=== PATIENT | male | born 1950 | race African-American/Black ===

== ENCOUNTER 2018-06-06 13:05 | Emergency (ER) | payer OTHER ==
[2018-06-06 13:10] VITALS: BMI 34.2
--- NOTE | 2018-06-06 13:32 | PDOC ---
Attending Attestation - [facility] HPI: 06/06/18 14:57 The patient is a 67 year old male with a significant past medical history of diabetes, HTN, HIV, neuropathy, and chronic back pain who presents to the ER with lightheadedness and abdominal pain today. Patient localizes the abdominal pain to the right upper quadrant and suprapubic region. Patient states he took his morning meds today, had smaller breakfast than usual and subsequently felt lightheaded while he got ready for tenriism. Patient also reports mild nausea, but states this is normal for him. The patient denies chest pain, shortness of breath, headache, and dizziness. Denies fever, chills, vomit, diarrhea, and constipation. Denies dysuria, frequency, urgency, and hematuria. Allergies: NKA Past surgical history: None reported. Social history: No reported alcohol, drug, or cigarette use. PCP: Dr Bergeron - Physicial Exam PE: 06/06/18 14:48 ADULT PHYSICAL EXAM Constitutional: Awake, alert, oriented. No acute distress. Head: Normocephalic. Atraumatic Eyes: PERRL. EOMI. Conjunctivae are not pale. ENT: Mucous membranes are moist and intact. Posterior pharynx without exudates or erythema. Uvula midline. Neck: Supple. Full ROM. No lymphadenopathy. Cardiovascular: Regular rate. Regular rhythm. S1, S2 regular. Distal pulses are 2+ and symmetric. Pulmonary/Chest: No evidence of respiratory distress. Clear to auscultation bilaterally No wheezing, rales or rhonchi. Abdominal: (+) Right upper quadrant and suprapubic tenderness. Soft and non- distended. No rebound, guarding or rigidity. No organomegaly. No palpable masses. Good bowel sounds. Back: No CVA tenderness. Musculoskeletal: No edema. No cyanosis. No clubbing. Full range of motion in all extremities. Nocalf tenderness. Radial/pedal pulses are intact and 2+ bilaterally Skin: Skin is warm and dry. No petechiae. No purpura. (+) Rash on the right ankle. Neurological: Alert and oriented to person, place, and time. Cranial nerves II -XII are grossly intact. Normal speech. Strength is grossly symmetric. No sensory deficits. (+) Peripheral neuropathy. Psychiatric: Good eye contact. Normal interaction, affect and behavior. <[place] - Last Filed: 06/06/18 14:57> - Resident Resident Name: BishopYe - ED Attending Attestation I have performed the following: I have examined & evaluated the patient, The case was reviewed & discussed with the resident, I agree w/resident's findings & plan, Exceptions are as noted - Medical Decision Making 06/06/18 13:31 I, Dr. Judy Lopez, DO, attest that this document has been prepared under my direction and personally reviewed by me in its entirety. I further attest, that it accurately reflects all work, treatment, procedures and medical decision -making performed by me. 06/06/18 15:27 a/p: 67yo male with HIV hx and chronic pain on opiates with lightheadedness and nausea today while at tenriism -near syncopal episode -took his morning pain meds - morphine, but did not eat or drink his normal breakfast -chronic abd pain from constipation -had an episode of sharp R sided cp yesterday, but none today -dysuria intermittently x a few days -no f/c -will send labs, ekg, trop, cxr, RUQ ultrasound/ua -pt with RUQ ttp that reproduces his abd pain -will hydrate with IVF hydration -reglan for nausea/silva/dizziness -will monitor and reassess 06/06/18 18:03 negative ultrasound pt feeling better 06/06/18 18:04 chest xray clear 06/06/18 18:07 pt feels much better asking to go home abd soft/nt no longer nauseated no longer dizzy suspect symptoms from narcotic use without food at home labs and imaging reviewed with the patient. pt is stable for d/c to home <Judy Lopez - Last Filed: 06/06/18 18:09> Discharge Disposition - Discharge Dispostion Decision to Admit order: No <Judy Lopez - Last Filed: 06/06/18 18:09> - Diagnosis Lightheadedness, Nausea, Abdominal pain - Discharge Dispostion Disposition: HOME Condition at time of disposition: Stable - Referrals Referrals: Soco Bergeron MD [Primary Care Provider] - - Patient Instructions Printed Discharge Instructions: DI for Dizziness-Nonvertigo, DI for Abdominal Pain-Adult Additional Instructions: Please make an appointment to see your PMD this week. Please drink plenty of fluids. Please take your medications with food or milk. Please return to the ED with any further concerns or complaints. - Post Discharge Activity
[2018-06-06] MEDS ORDERED: METOCLOPRAMIDE HCL INJECTION 10 MG/2 ML VIAL IVPUSH ONE (14:27)
[2018-06-06] MEDS ORDERED: SODIUM CHLORIDE 0.9% 500 ML INFUS.BAG IV ONE (14:27)
[2018-06-06] MEDS ORDERED: METOCLOPRAMIDE HCL INJECTION 10 MG/2 ML VIAL ONE (14:48)
[2018-06-06 14:56] LABS: BASO % 0.7 % (0-2.0); EOS % 1.1 % (0-4.5); HEMATOCRIT 39.5 % (35.4-49); LYMPH % 31.3 % (8-40); MCH 28.7 pg (25.7-33.7); MCHC 32.9 g/dl (32.0-35.9); MEAN CELL VOLUME 87.2 fl (80-96); MEAN PLT VOLUME 7.7 fl (7.5-11.1); MONO % 7.4 % (3.8-10.2); NEUT % 59.5 % (42.8-82.8); PLATELET COUNT 208 K/MM3 (134-434); RBC 4.53 M/mm3 (4.00-5.60); WHITE BLOOD COUNT 6.9 K/mm3 (4.0-10.0)
--- NOTE | 2018-06-06 15:10 | PDOC ---
History of Present Illness - General Chief Complaint: Syncope/Near Syncope Stated Complaint: NEAR SYNCOPE Time Seen by Provider: 06/06/18 13:31 History Source: Patient, Old Records Exam Limitations: No Limitations - History of Present Illness Initial Comments: 67 y/o male presenting to [facility] ER via private auto complaining of dizziness, lightheadedness, global weakness since approx. 10:30 this morning. Symptoms started while he was getting dressed for yazdanism. He was still able to make service. Began to feel worse and request friends drive him to the hospital. He states these symptoms are a chronic problem for him over the past several years. He took his scheduled morphine around 4am and oxycodone around 10am for his chronic back pain. Endorses nausea without vomiting, right sided nonradiating non-reproducible sharp chest pain, chronic and unchanged abdominal pain, and chronic and unchanged constipation. Pt is HIV+ but in remission. Believes his last viral load was undetectable but unable to recall his CD4 count. Thinks this was last tested 2 months ago. Complaint with HARRT therapy. Pt reports he has a monitor in his chest with a tablet coater on his bedside. Does not think it is a pacemaker. Does not know why it was placed or if he has any cardiac problems other than HTN. PCP: [facility] Infectious Disease: [facility] Larry Operator: [facility] [place] Hx: - EtOH: Infrequently, drank 1 glass of wine last night - Tobacco: Denies - Street Drugs: Denies Medical Hx: - Diabetes - HTN - HIV - Neuropathy - Chronic back pain Surgical Hx: - Pt denies past surgical history. Past History - Past Medical History Allergies/Adverse Reactions: Allergies Allergy/AdvReac Type Severity Reaction Status Date / Time No Known Allergies Allergy Verified 12/26/17 20:05 Home Medications: Ambulatory Orders Amlodipine Besylate 10 mg PO DAILY 12/26/17 Glipizide 5 mg PO BID 12/26/17 Lisinopril 10 mg PO DAILY 12/26/17 Metoprolol Tartrate 100 mg PO BID 12/26/17 Morphine [Morphine Sulfate] 15 mg PO BID 12/26/17 Naloxegol Oxalate [Movantik] 25 mg PO DAILY 12/26/17 Sitagliptin Phosphate [Januvia] 100 mg PO DAILY 12/26/17 oxyCODONE HCL [Roxicodone -] 10 mg PO BID 12/26/17 COPD: No CHF: No Diabetes: Yes HTN: Yes - Suicide/Smoking/Psychosocial Hx Smoking History: Never smoked Have you smoked in the past 12 months: No Information on smoking cessation initiated: No Hx Alcohol Use: No Drug/Substance Use Hx: No Substance Use Type: None Review of Systems - Review of Systems Able to Perform ROS?: Yes Comments:: In addition to that documented in the HPI above, the additional ROS was obtained : Constitutional: Denies fevers or chills Eyes: Denies vision changes ENMT: Denies sore throat CV: Endorses chest pain per HPI Resp: Denies SOB GI: Denies vomiting or diarrhea *Physical Exam - Vital Signs Last Vital Signs Temp Pulse Resp BP Pulse Ox 97.9 F 71 19 117/71 98 06/06/18 18:51 06/06/18 18:51 06/06/18 18:51 06/06/18 18:51 06/06/18 18:51 - Physical Exam Comments: Constitutional: Well-developed, well-nourished male in no acute distress or obvious discomfort. Found semi-fowlers in hospital bed. Alert and oriented x4. Answered all questions appropriately and completely. Speech was non-labored, non -pressured. HEENT: Normocephalic. No obvious external signs of trauma. Hearing grossly normal. No nasal discharge. Neck is supple, trachea is midline. Cardiovascular: Regular rate and regular rhythm. No murmur, rubs, clicks, or gallops. Peripheral pulses: Radial pulses full. Respiratory: Breathing unlabored. Equal chest rise and fall. Clear to auscultation bilaterally. No stridor, no wheezing, no rhonchi. Gastrointestinal: abdomen is subjectively tender without rebound or guarding in epigastric region and LLQ. No pulsatile masses. No overlying skin lesions or obvious signs of trauma. Neuro: Alert and oriented. Moving all four extremities spontaneously.Intact sensation to all four extremities. Upper and lower extremity: proximal and distal strength 5/5. Vp Global strength 5/5 - equal and symmetric. Plantar flexion and dorsiflexion 5/5. Skin: Warm, dry, and intact. No bruising, rashes, or other lesions. No palpable nodules. Psych: Affect: appropriate. Mood: normal. ED Treatment Course - LABORATORY CBC & Chemistry Diagram: 06/06/18 14:48 06/06/18 14:48 - ADDITIONAL ORDERS Additional order review: 06/06/18 14:48 RBC 4.53 MCV 87.2 MCHC 32.9 RDW 15.0 MPV 7.7 Neutrophils % 59.5 Lymphocytes % 31.3 Monocytes % 7.4 Eosinophils % 1.1 Basophils % 0.7 - RADIOLOGY Radiology Studies Ordered: Category Date Time Status CHEST PA & LAT [RAD] Stat Radiology 06/06/18 14:04 Completed Radiograph Interpretation: RUQ Ultrasound: Akbar Yang MD wrote on Jun 06, 2018 at 05:57 PM: Referring Physician: JENN CORTEZ Patient Name: CEZAR GOMEZ THIS IS A PRELIMINARY REPORT FROM [facility] DATE OF SERVICE: 2018-06-06 16:39:52 IMAGES: 46 EXAM: US ABDOMEN LIMITED HISTORY: Right upper quadrant pain. TECHNIQUE: Sonographic imaging was performed utilizing transabdominal approach. Additional Doppler flow of the liver were submitted for dictation. COMPARISON: None available. FINDINGS: Liver: Mild hepatic steatosis. Bile Ducts: Intrahepatic and extrahepatic bile ducts are not dilated. The common bile duct measures 0.4 cm. Gallbladder: No evidence of shadowing cholelithiasis, gallbladder wall thickening, or pericholecystic fluid. Negative sonographic Darby's sign. Pancreas: The pancreatic head is unremarkable. Right Kidney: No pelvicaliceal dilatation. Incidental note is made of a 1.3 cm nonobstructing nephrolithiasis in the superior pole of the right kidney. Aorta and Inferior Vena Cava: Visualized portions appear normal. THIS DOCUMENT HAS BEEN ELECTRONICALLY SIGNED Akbar Yang MD 06/06/2018 17:57 EST - Medications Given in the ED: ED Medications Discontinued Medications Generic Name Dose Route Start Last Admin Trade Name Freq PRN Reason Stop Dose Admin Diphenhydramine HCl 12.5 mg 06/06/18 14:28 06/06/18 14:52 Benadryl Injection - IVPUSH 06/06/18 14:29 12.5 mg ONCE ONE Administration Metoclopramide HCl 10 mg 06/06/18 14:27 06/06/18 14:52 Reglan Injection - IVPUSH 06/06/18 14:28 10 mg ONCE ONE Administration Sodium Chloride 1,000 ml 06/06/18 14:27 06/06/18 14:52 Normal Saline - IV 10/07/18 14:28 1,000 ml ONCE ONE Administration Medical Decision Making - Medical Decision Making *Reviewed vital signs, nursing notes, and prior visit documentation (if available). 67 y/o male complaining of acute worsening of dizziness, lightheadedness, and weakness. Complaints have been chronic for several years. Afebrile. Vitals unremarkable for hypotension or tachycardia. CBC unremarkable for anemia or leukocytosis. CMP unremarkable for electrolyte derangement. LFTs not elevated. UA unremarkable for pyuria, leukocyte esterase, or nitrites. Low suspicion for UTI. Culture pending. RUQ U/S unremarkable for acute biliary process. Suspect pt's symptoms are vertiginous in nature. Pt now states he has previously taken medication for vertigo but has not used it in a while. My attending provided results, return precautions, and discharge instructions. Pt left department without incident. *DC/Admit/Observation/Transfer Diagnosis at time of Disposition: Lightheadedness, Nausea, Abdominal pain - Discharge Dispostion Disposition: HOME Condition at time of disposition: Stable - Referrals Referrals: Soco Bergeron MD [Primary Care Provider] - - Patient Instructions Printed Discharge Instructions: DI for Abdominal Pain-Adult, DI for Dizziness- Nonvertigo Additional Instructions: Please make an appointment to see your PMD this week. Please drink plenty of fluids. Please take your medications with food or milk. Please return to the ED with any further concerns or complaints. - Post Discharge Activity
[2018-06-06 15:35] LABS: ALBUMIN 3.7 g/dl (3.4-5.0); ALK PHOS 68 U/L (45-117); ANION GAP 4 MMOL/L (8-16); BILIRUBIN,TOTAL 0.4 mg/dL (0.2-1); BLOOD UREA NITROGEN 24 mg/dL (7-18); CALCIUM 10.1 mg/dL (8.5-10.1); CHLORIDE 104 mmol/L (98-107); CO2 27 mmol/L (21-32); CREATININE 1.3 mg/dL (0.55-1.3); GLUCOSE,RANDOM 189 mg/dL (74-106); POTASSIUM 4.1 mmol/L (3.5-5.1); SGOT/AST 17 U/L (15-37); SGPT/ALT 24 U/L (13-61); SODIUM 134 mmol/L (136-145); TOT PROT 8.5 g/dl (6.4-8.2)
[2018-06-06 16:05] LABS: URINE APPEARANCE SLCLOUDY; URINE BILIRUBIN NEGATIVE (<2.0 mg/dL); URINE COLOR AMBER; URINE GLUCOSE (UA) NEGATIVE (NEGATIVE); URINE KETONE TRACE (NEGATIVE); URINE LEUK ESTERASE NEGATIVE (NEGATIVE); URINE NITRITE NEGATIVE (NEGATIVE); URINE PROTEIN 2+ (NEGATIVE); URINE UROBILINOGEN NEGATIVE mg/dL (0.2-1.0)
[2018-06-06 16:14] LABS: EPI CELLS RARE /HPF (FEW)
[2018-06-06 18:52] VITALS: BP 117/71; PULSE 71; TEMP 97.9
--- NOTE | 2018-06-07 10:40 | EKG ---
Test Reason : Blood Pressure : / mmHG Vent. Rate : 065 BPM Atrial Rate : 065 BPM P-R Int : 192 ms QRS Dur : 082 ms QT Int : 390 ms P-R-T Axes : 053 -15 -04 degrees QTc Int : 405 ms NORMAL SINUS RHYTHM POSSIBLE LEFT ATRIAL ENLARGEMENT INFERIOR INFARCT (CITED ON OR BEFORE 26-DEC-2017) ABNORMAL ECG WHEN COMPARED WITH ECG OF 26-DEC-2017 22:06, NO SIGNIFICANT CHANGE WAS FOUND Confirmed by LUZ CABALLERO MD ([id number]) on 06/07/2018 10:39:38 AM Referred By: Confirmed By:LUZ CABALLERO MD
== END 2018-06-06 19:03 | disposition home or self-care (01) ==
LOC: JER 13:05
PROC: 3E033GC Introduction of Other Therapeutic Substance into Peripheral Vein, Percutaneous Approach (ICD-10-PCS; principal; 2018-06-06)
PROC: 3E033GC Introduction of Other Therapeutic Substance into Peripheral Vein, Percutaneous Approach (ICD-10-PCS; 2018-06-06)
DX: R10.84 Generalized abdominal pain (principal); R42 Dizziness and giddiness; R11.0 Nausea; I10 Essential (primary) hypertension; E11.9 Type 2 diabetes mellitus without complications; Z79.84 Long term (current) use of oral hypoglycemic drugs; G62.9 Polyneuropathy, unspecified; M54.9 Dorsalgia, unspecified; G89.29 Other chronic pain; Z21 Asymptomatic human immunodeficiency virus [HIV] infection status
CPT/HCPCS: 36415; 71046-TC-FY; 76705-TC; 80053; 81003; 81015; 82272; 84484; 85025; 87086; 93005; 93010; 96374; 96375; 99284-25

== ENCOUNTER 2018-09-20 11:17 | Emergency (ER) | payer OTHER ==
[2018-09-20 11:26] VITALS: TEMP 98.1; BMI 32.1
--- NOTE | 2018-09-20 13:46 | PDOC ---
History of Present Illness - General Chief Complaint: Lightheaded Stated Complaint: DIZZNESS/VOMITING/COUGHING Time Seen by Provider: 09/20/18 11:47 History Source: Patient Exam Limitations: No Limitations - History of Present Illness Initial Comments: 09/20/18 14:08 Pt is a 68yo M with PMH of HTN, NIDDM, HIV with undetectable viral load ( checked every 3 months), GERD, Vertigo presenting to ED with complaints of dizziness and cough. Pt says he normally has feelings of vertigo however this time he is now coughing as well. He states last time he had similar symptoms he was diagnosed with PNA. He endorses cough productive of beige/light brown phlegm for the past 2-3 weeks, 2 episodes of nbnb emesis 2 days ago, subjective fevers, chills, burning with urination and abdominal pain which patient describes as a burning sensation. Pt denies chest pain, lightheadedness, syncope , palpitations, diarrhea, bloody stools, weakness, numbness/tingling. PMD: Rubio PMH: see hpi Meds: see med rec Allergies: nkda Social: denies Past History - Past Medical History Allergies/Adverse Reactions: Allergies Allergy/AdvReac Type Severity Reaction Status Date / Time No Known Allergies Allergy Verified 09/20/18 11:23 Home Medications: Ambulatory Orders Amlodipine Besylate 10 mg PO DAILY 12/26/17 Glipizide 10 mg PO BID 12/26/17 Lisinopril 10 mg PO DAILY 12/26/17 Metoprolol Tartrate 100 mg PO BID 12/26/17 Morphine [Morphine Sulfate] 15 mg PO BID 12/26/17 Naloxegol Oxalate [Movantik] 25 mg PO DAILY 12/26/17 Sitagliptin Phosphate [Januvia] 100 mg PO DAILY 12/26/17 oxyCODONE HCL [Roxicodone -] 10 mg PO BID 12/26/17 Azithromycin [Zithromax -] 250 mg PO UTDICT #6 tab 09/20/18 Meclizine HCl 50 mg PO BID #14 tablet 09/20/18 Cardiac Disorders: Yes (internal heart monitor) COPD: No CHF: No Diabetes: Yes HTN: Yes - Immunization History Immunization Up to Date: Yes - Suicide/Smoking/Psychosocial Hx Smoking History: Never smoked Have you smoked in the past 12 months: No Hx Alcohol Use: No Drug/Substance Use Hx: No Substance Use Type: None Review of Systems - Review of Systems Constitutional: Yes: Chills, Fever. No: Loss of Appetite, Weakness HEENTM: No: Eye Pain, Blurred Vision, Ear Pain, Throat Pain Respiratory: Yes: Cough, Shortness of Breath. No: Orthopnea, Wheezing Cardiac (ROS): No: Chest Pain, Lightheadedness, Palpitations, Syncope ABD/GI: Yes: Constipated, Nausea, Vomiting, Abdominal cramping. No: Diarrhea, Difficulty Swallowing, Rectal Bleeding, Tarry Stools : Yes: Burning. No: Dysuria, Discharge, Frequency, Flank Pain Musculoskeletal: No: Back Pain, Muscle Weakness, Neck Pain, Joint Stiffness Integumentary: No: Symptoms Reported Neurological: No: Headache, Numbness, Seizure, Tingling, Tremors, Weakness, Dizziness *Physical Exam - Vital Signs Last Vital Signs Temp Pulse Resp BP Pulse Ox 98.1 F 71 20 173/94 H 98 09/20/18 11:23 09/20/18 11:23 09/20/18 11:23 09/20/18 11:23 09/20/18 11:23 - Physical Exam General Appearance: Yes: Nourished, Appropriately Dressed. No: Apparent Distress HEENT: positive: EOMI, PAIGE, Normal ENT Inspection, TMs Normal, Pharynx Normal Neck: positive: Trachea midline, Supple. negative: Carotid bruit, Lymphadenopathy (R), Lymphadenopathy (L) Respiratory/Chest: positive: Lungs Clear, Normal Breath Sounds. negative: Decreased Breath Sounds, Crackles, Rhonchi, Stridor, Wheezing, Dullness Cardiovascular: positive: Regular Rhythm, Regular Rate, S1, S2. negative: Edema , JVD, Murmur Vascular Pulses: Carotid (R): 2+, Carotid (L): 2+, Dorsalis-Pedis (R): 2+, Doralis-Pedis (L): 2+ Gastrointestinal/Abdominal: positive: Normal Bowel Sounds, Soft. negative: Distended, Guarding, Rebound, Tenderness Musculoskeletal: positive: Normal Inspection. negative: CVA Tenderness Extremity: positive: Normal Capillary Refill Integumentary: positive: Normal Color, Dry, Warm Neurologic: positive: public health sanitarian II-XII NML intact, Fully Oriented, Alert, Normal Mood/ Affect, Normal Response, Motor Strength 5/5 Moderate Sedation - Procedure Monitoring Vital Signs: Procedure Monitoring Vital Signs Temperature 98.1 F 09/20/18 11:23 Pulse Rate 71 09/20/18 11:23 Respiratory Rate 20 09/20/18 11:23 Blood Pressure 173/94 H 09/20/18 11:23 O2 Sat by Pulse Oximetry (%) 98 09/20/18 11:23 ED Treatment Course - LABORATORY CBC & Chemistry Diagram: 09/20/18 14:08 09/20/18 14:00 Medical Decision Making - Medical Decision Making 09/20/18 14:12 Pt is a 68yo M with PMH of HTN, NIDDM, HIV with undetectable viral load, GERD, Vertigo presenting to ED with complaints of dizziness and cough. Pt says he normally has feelings of vertigo however this time he is now coughing as well. He states last time he had similar symptoms he was diagnosed with PNA. He endorses cough productive of beige/light brown phlegm, 2 episodes of nbnb emesis 2 days ago, subjective fevers, chills, burning with urination and abdominal pain which patient describes as a burning sensation. Pt denies chest pain, lightheadedness, syncope, palpitations, diarrhea, bloody stools, weakness , numbness/tingling. Vitals: wnl PE: benign Low suspicion for central vertigo or CVA (no neurological deficits). PT complaining of SOB, cough. Will order cxr, ekg, trop and basic labs, UA, Ucx. -50mg Meclizine 09/20/18 15:55 Labs wnl. CXR wnl, no focal consolidations. EKG nsr, no RADHA or depressions. outside window of Tamiflu 09/20/18 16:40 [employer] Rachele from Dr. Bergeron. Zpack and follow up. Pt is hemodynamically stable, afebrile and not vertiginous anymore. Is able to ambulate without stumbling or feeling dizzy. Will dc home. Rx for azithromycin and meclizine given. *DC/Admit/Observation/Transfer Diagnosis at time of Disposition: Cough, Dizziness - Discharge Dispostion Disposition: HOME Condition at time of disposition: Improved Decision to Admit order: No - Prescriptions Prescriptions: Azithromycin [Zithromax -] 250 mg PO UTDICT #6 tab Meclizine HCl 50 mg PO BID #14 tablet - Referrals Referrals: Soco Bergeron MD [Staff Physician] - - Patient Instructions Printed Discharge Instructions: DI for Cough -- Adult, DI for Vertigo Additional Instructions: You were seen here today for cough and dizziness. The dizziness is most likely vertigo. All your tests were normal and the xray of your chest was normal. You do not have pneumonia at this time. I called your doctor's office and they recommend that you take an antibiotic and follow up in the office sometime this week. A prescription for Z-pack (antibiotic) and meclizine (for dizziness) was sent to your pharmacy. Please take as directed. Come back to the emergency room if you have worsening fever, worsening cough, you feel short of breath, you have chest pain, you lose consciousness or if any new concerning symptom develops. Thank you - Post Discharge Activity
[2018-09-20 14:19] LABS: BASO % 0.2 % (0-2.0); EOS % 1.9 % (0-4.5); HEMATOCRIT 39.1 % (35.4-49); HEMOGLOBIN 13.2 GM/dL (11.7-16.9); LYMPH % 43.9 % (8-40); MCH 29.5 pg (25.7-33.7); MCHC 33.7 g/dl (32.0-35.9); MEAN CELL VOLUME 87.4 fl (80-96); MEAN PLT VOLUME 7.5 fl (7.5-11.1); MONO % 8.1 % (3.8-10.2); NEUT % 45.9 % (42.8-82.8); PLATELET COUNT 184 K/MM3 (134-434); RBC 4.47 M/mm3 (4.00-5.60); RDW 14.4 % (11.9-15.9); WHITE BLOOD COUNT 5.7 K/mm3 (4.0-10.0)
[2018-09-20 14:47] LABS: URINE APPEARANCE CLEAR; URINE BILIRUBIN NEGATIVE (<2.0 mg/dL); URINE COLOR LTYELLOW; URINE GLUCOSE (UA) 2+ (NEGATIVE); URINE KETONE NEGATIVE (NEGATIVE); URINE LEUK ESTERASE NEGATIVE (NEGATIVE); URINE NITRITE NEGATIVE (NEGATIVE); URINE PROTEIN 2+ (NEGATIVE); URINE UROBILINOGEN NEGATIVE mg/dL (0.2-1.0)
[2018-09-20 14:49] LABS: URINE MUCUS RARE
[2018-09-20] MEDS ORDERED: MECLIZINE HCL 25 MG TABLET (FP) PO ONE (14:49)
[2018-09-20 14:54] LABS: ALBUMIN 3.7 g/dl (3.4-5.0); ALK PHOS 72 U/L (45-117); ANION GAP 8 MMOL/L (8-16); BILIRUBIN,TOTAL 0.3 mg/dL (0.2-1); BLOOD UREA NITROGEN 16 mg/dL (7-18); CHLORIDE 101 mmol/L (98-107); CO2 30 mmol/L (21-32); CREATININE 0.9 mg/dL (0.55-1.3); GLUCOSE,RANDOM 175 mg/dL (74-106); POTASSIUM 4.2 mmol/L (3.5-5.1); SGOT/AST 19 U/L (15-37); SGPT/ALT 27 U/L (13-61); SODIUM 139 mmol/L (136-145); TOT PROT 8.5 g/dl (6.4-8.2)
[2018-09-20 15:06] VITALS: BP 135/75; PULSE 60
[2018-09-20] MEDS ORDERED: MECLIZINE HCL 25 MG TABLET (FP) ONE (15:09)
--- NOTE | 2018-09-20 16:02 | PDOC ---
Attending Attestation - Resident Resident Name: MalgorzataSaBouchra - ED Attending Attestation I have performed the following: I have examined & evaluated the patient, The case was reviewed & discussed with the resident, I agree w/resident's findings & plan - HPI HPI: 09/20/18 15:56 68-year-old male with history of intermittent vertigo and distant history of pneumonia presents with recurrence of his vertigo for the last few days in the setting of several weeks persistent cough with occasional clear/yellow sputum. had subjective fever/chills/night sweats this week, otherwise no URI sxs or chest pain or PARKINSON/SOB. c/o difficulty urinating and suprapubic discomfort, no flank pain. no headache/vision change/speech change/focal weakness - Physicial Exam PE: 09/20/18 16:00 Blood pressure slightly elevated, afebrile and well appearing with normal O2 sat atraumatic, neck supple, no audible carotid bruit perrl, eomi s1s2, rrr slightly decreased BS on Left, no crackles/wheeze abd soft/nt. slight suprapubic discomfort to palpation without guarding/rebound/ cvat no edema neuro intact, fnf normal, gait steady - Medical Decision Making 09/20/18 16:02 68-year-old male with history of intermittent vertigo likely peripheral etiology typically triggered by infections presents with recurrence of vertigo in the setting of several weeks of cough. Hemodynamically stable and really well-appearing without respiratory distress, neurologically intact. Check labs, urinalysis Chest x-ray trial of meclizine Discuss disposition with patient's PCP, Dr. Bergeron 09/20/18 16:40 workup negative, cxr without pna. vertigo resolved after meclizine, ambulating steadily and independently. discussed with Dr. Bergeron, agree with d/c plan. Will cover with azithro course for prolonged cough and office f/u. Understands return criteria. Heart Score/ECG Review #1 ECG reviewed & interpreted by me at: 11:43 General ECG Interpretation: Sinus Rhythm, Normal Rate (64), Normal Intervals ( qtc 371), No acute ischemic changes (t-wave flattening v4-v6)
--- NOTE | 2018-09-21 16:53 | EKG ---
Test Reason : Blood Pressure : / mmHG Vent. Rate : 064 BPM Atrial Rate : 064 BPM P-R Int : 170 ms QRS Dur : 084 ms QT Int : 360 ms P-R-T Axes : 034 -17 -07 degrees QTc Int : 371 ms NORMAL SINUS RHYTHM LEFT ATRIAL ENLARGEMENT LEFT VENTRICULAR HYPERTROPHY ABNORMAL ECG Confirmed by MD LONNY, HUMAIRA ([id number]) on 09/21/2018 4:53:14 PM Referred By: Confirmed By:HUMAIRA MUKHERJEE MD
== END 2018-09-20 16:51 | disposition home or self-care (01) ==
LOC: JER 11:17
DX: R42 Dizziness and giddiness (principal); R05 Cough; I10 Essential (primary) hypertension; E11.9 Type 2 diabetes mellitus without complications; Z79.84 Long term (current) use of oral hypoglycemic drugs; Z21 Asymptomatic human immunodeficiency virus [HIV] infection status; Z95.818 Presence of other cardiac implants and grafts
CPT/HCPCS: 36415; 71046-TC-FY; 80053; 81003; 81015; 84484; 85025; 93005; 93010; 99283-25